=== PATIENT | female | born 1970 | race Two or more races ===

== ENCOUNTER 2016-10-27 08:23 | Emergency (ER) | payer BC, MEDICAID ==
[~2016-10-27] VITALS: Ht 170.2 cm; Wt 73.2 kg
[2016-10-27 09:23] LABS: HEMATOCRIT 41.1 % (34.6-47.8); HEMOGLOBIN 14.1 g/dL (11.7-16.4); WHITE BLOOD COUNT 6.1 x10^3/uL (3.4-10)
[2016-10-27 09:30] LABS: BLOOD UREA NITROGEN 12 mg/dL (7-18)
[2016-10-27 10:21] VITALS: BP 115/81
== END 2016-10-27 11:07 | disposition home or self-care (01) ==
LOC: ED 08:56
DX: K64.4 Residual hemorrhoidal skin tags (principal)
CPT/HCPCS: 36415; 80048; 81001; 82040; 85025; 87086; 99284

== ENCOUNTER 2018-03-19 06:09 | Day surgery (SDC) | payer MEDICAID ==
[~2018-03-19] VITALS: Ht 170.2 cm; Wt 72.5 kg
[~2018-03-19 06:09] MED LIST: None per pt
[2018-03-19] MEDS ORDERED: LACTATED RINGERS 1,000 ML IV SCH (07:06)
[2018-03-19 07:09] VITALS: BP 129/90
[2018-03-19] MEDS ORDERED: METOPROLOL 1 MG/ML, 5ML IV PRN (08:00)
[2018-03-19] MEDS ORDERED: FENTANYL PF 100 MCG/2ML IV PRN (08:00)
[2018-03-19] MEDS ORDERED: LABETALOL 5MG/ML, 20ML IV PRN (08:00)
[2018-03-19] MEDS ORDERED: ONDANSETRON 2MG/ML, 2ML IV PRN (08:00)
[2018-03-19] MEDS ORDERED: hydrALAzine 20 MG/ML, 1ML IV PRN (08:00)
[2018-03-19] MEDS ORDERED: PROPOFOL 50 ML ONE ×2 (08:08→08:36)
== END 2018-03-19 11:10 | disposition home or self-care (01) ==
LOC: OUT 06:09
PROVIDERS: ATTEND Internal Medicine Gastroenterology
DX: D12.7 Benign neoplasm of rectosigmoid junction (principal); Z98.890 Other specified postprocedural states
CPT/HCPCS: 45338; 45341; 88305; 93005; J2704

== ENCOUNTER 2018-04-04 07:55 | Emergency (ER) | payer MEDICAID ==
[~2018-04-04] VITALS: Ht 170.2 cm; Wt 72.0 kg
[2018-04-04] MEDS ORDERED: PHENAZOPYRIDINE 200 MG TABLET PO ONE (08:30)
[2018-04-04] MEDS ORDERED: PHENAZOPYRIDINE 200 MG TABLET ONE (08:37)
[2018-04-04 08:52] LABS: CULTURE INDICATED? YES; MICROSCOPIC INDICATED
--- NOTE | 2018-04-04 10:00 | NUR ---
PT REPORT FROM NIMESH RAMIREZ. PT AWAITING DC.
[2018-04-04 10:21] VITALS: BP 107/78
== END 2018-04-04 10:23 | disposition home or self-care (01) ==
LOC: ED 08:11
DX: N30.01 Acute cystitis with hematuria (principal)
CPT/HCPCS: 81001; 87077; 87086; 87186; 99283